=== PATIENT | male | born 1995 | race Caucasian/White ===

== ENCOUNTER 2018-11-14 23:20 | Emergency (ER) | payer OTHER ==
[~2018-11-14] VITALS: Ht 185.4 cm; Wt 80.3 kg
--- NOTE | 2018-11-14 23:46 | NUR ---
RANI C/O. "WAS ATTACKED AT WORK 3X HRS AGO" -LOC -KO -N/V -DIZZINESS. -SOB.
[2018-11-15 01:23] VITALS: BP 124/66
--- NOTE | 2018-11-15 01:25 | NUR ---
pt ok to discharge per dr Cooper. Patient discharged to home in stable condition. Written and verbal after care instructions given. Patient verbalizes understanding of instruction.Patient is awake and alert to self, day, and place. Pt ambulatory with a steady gait
== END 2018-11-15 01:25 | disposition home or self-care (01) ==
LOC: ER 23:27
DX: S00.83XA Contusion of other part of head, initial encounter (principal); R51 Headache; Y04.8XXA Assault by other bodily force, initial encounter; Y93.89 Activity, other specified; Y92.89 Other specified places as the place of occurrence of the external cause; Y99.0 Civilian activity done for income or pay
CPT/HCPCS: 70450; 72125; 99284; A4606